=== PATIENT | male | born 1990 | race Caucasian/White ===

== ENCOUNTER 2018-07-08 07:51 | Emergency (ER) | payer OTHER ==
[~2018-07-08] VITALS: Ht 170.2 cm; Wt 72.6 kg
[~2018-07-08 07:51] MED LIST: CEPH500 PO; DOCU100 PO; HYDACE5 PO; SULTRIDS PO
[2018-07-08] MEDS ORDERED: SAPHRIS5 MG SL (09:03)
[2018-07-08] MEDS ORDERED: CLON2 PO (09:03)
[2018-07-08] MEDS ORDERED: IBUP600 PO (10:00)
== END 2018-07-08 10:08 | disposition home or self-care (01) ==
LOC: ER 07:51
DX: S01.411A Laceration without foreign body of right cheek and temporomandibular area, initial encounter (principal); Y04.8XXA Assault by other bodily force, initial encounter; F17.210 Nicotine dependence, cigarettes, uncomplicated
CPT/HCPCS: 12051; 90471; 90714; 96374; 99282-25; J1885

== ENCOUNTER 2019-02-21 17:58 | Observation (INO) | payer MEDICARE, OTHER ==
[~2019-02-21] VITALS: Ht 170.2 cm; Wt 77.1 kg
[~2019-02-21 17:58] MED LIST changes: +CLON1 PO; +IBUP600 PO; +SAPHRIS10 MG SL
[2019-02-21 18:58] LABS: BASOPHILS ABSOLUTE AUTO 0.03 K/mm3 (0.00-0.23); BASOPHILS PERCENT AUTO 0 % (0-2); EOSINOPHILS ABSOLUTE AUTO 0.06 K/mm3 (0.00-0.68); EOSINOPHILS PERCENT AUTO 1 % (0-6); Hematocrit 40.8 % (37.0-53.0); Hemoglobin 14.4 g/dL (13.5-17.5); IMMATURE GRAN ABSOLUTE AUTO 0.03 K/mm3 (0.00-0.10); IMMATURE GRAN PERCENT AUTO 0 % (0-1); LYMPHOCYTES ABSOLUTE AUTO 2.34 K/mm3 (0.84-5.20); LYMPHOCYTES PERCENT AUTO 27 % (21-46); MONOCYTES ABSOLUTE AUTO 0.82 K/mm3 (0.16-1.47); MONOCYTES PERCENT AUTO 9 % (4-13); Mean Corpuscular HGB 32.9 pg (26.0-34.0); Mean Corpuscular HGB Conc 35.3 g/dL (31.5-36.5); Mean Corpuscular Volume 93 fL (80-100); Mean Platelet Volume 10.6 fL (9.1-12.4); NEUTROPHILS ABSOLUTE AUTO 5.52 K/mm3 (1.96-9.15); NEUTROPHILS PERCENT AUTO 63 % (41-73); Platelet Count 164 K/mm3 (150-400); Red Blood Cell Count 4.38 M/mm3 (4.30-5.90)
[2019-02-21 19:19] LABS: Ethanol (Alcohol), Blood, Med <3 mg/dL; Salicylate 2.9 mg/dL (2.8-20.0)
[2019-02-21 19:29] LABS: Acetaminophen, Random <2.0 ug/mL (10.0-30.0); Alanine Aminotransfer (ALT/SGP 42 U/L (12-78); Albumin/Globulin Ratio 1.1 (0.8-1.8); Alk Phos 69 U/L (50-136); Anion Gap 8 mmol/L (6-16); Aspartate Aminotrans (AST/SGOT 40 U/L (12-37); Bilirubin, Total 0.3 mg/dL (0.1-1.0); Blood Urea Nitrogen 10 mg/dL (8-24); Bun/Creatinine Ratio 14.1 (12.0-20.0); CO2, Blood 26 mmol/L (21-32); Calcium, Blood 8.7 mg/dL (8.5-10.1); Chloride, Blood 104 mmol/L (98-108); Creatinine, Blood 0.71 mg/dL (0.60-1.20); Globulin, Blood 3.8 g/dL (2.2-4.0); Glomerular Filtration Rate >60 (60-); Glucose, Blood 119 mg/dL (70-99); Potassium, Blood 3.6 mmol/L (3.5-5.5); Sodium, Blood 138 mmol/L (136-145); Thyroid Stimulating Hormone 0.621 uIU/mL (0.360-4.800); Total Protein, Blood 7.8 g/dL (6.4-8.2)
[2019-02-21 19:31] LABS: Source, Urine Voided
[2019-02-21 19:34] LABS: Bilirubin, Urine Neg (Neg); Blood, Urine Neg (Neg); Glucose Qualitative, Urine Neg (Neg); Ketones, Urine 1+ (Neg); Leukocyte Esterase, Urine 1+ (Neg); Nitrite, Urine Neg (Neg); Protein, Urine 2+ (Neg); Urobilinogen, Urine 1+ (Normal)
[2019-02-21 19:42] LABS: Appearance, Urine Clear (Clear); Color, Urine Amber (P-Yellow); Red Blood Cells, Urine 0-2 /hpf (0-2); Squamous Epithelial Cells Rare /hpf (Few)
[2019-02-21 19:43] LABS: Bacteria Many /hpf; Mucus Mod ({null, 0-Heavy})
[2019-02-21 19:45] LABS: U Amphetamine Screen Not Detected; U Barbituate Screen Not Detected; U Benzodiazapine Screen Not Detected; U Buprenorphine Screen Not Detected; U Cannabinoids Screen DETECTED; U Cocaine Screen Not Detected; U Methadone Screen Not Detected; U Methamphetamine Screen Not Detected; U Opiates Screen Not Detected; U Oxycodone Screen Not Detected; U Phencyclidine Screen Not Detected; U Propoxyphene Screen Not Detected
[2019-02-21] MEDS ORDERED: Klonopin1 MG PO (20:11)
[2019-02-21] MEDS ORDERED: SAPHRIS5 MG SL (20:50)
== END 2019-02-22 07:32 | disposition home or self-care (01) ==
LOC: ER 17:58 → EOR 17:59
PROVIDERS: ADMIT Emergency Medicine
DX: F25.9 Schizoaffective disorder, unspecified (principal); F10.129 Alcohol abuse with intoxication, unspecified; F17.200 Nicotine dependence, unspecified, uncomplicated; Z79.899 Other long term (current) drug therapy
CPT/HCPCS: 71046; 80053; 81001; 84443; 85025; 87086; 99284-25; G0378; G0480

== ENCOUNTER 2019-02-24 12:35 | Emergency (ER) | payer MEDICARE, OTHER ==
[~2019-02-24] VITALS: Ht 170.2 cm; Wt 72.6 kg
[~2019-02-24 12:35] MED LIST changes: +Klonopin1 MG PO; +SAPHRIS5 MG SL
== END 2019-02-24 14:20 | disposition home or self-care (01) ==
LOC: ER 12:35
DX: F41.9 Anxiety disorder, unspecified (principal); F20.9 Schizophrenia, unspecified; F17.200 Nicotine dependence, unspecified, uncomplicated; Z79.899 Other long term (current) drug therapy
CPT/HCPCS: 99283

== ENCOUNTER 2019-11-11 05:12 | Observation (INO) | payer MEDICARE ==
[~2019-11-11] VITALS: Ht 172.7 cm; Wt 72.6 kg
[2019-11-12] MEDS ORDERED: HYDPAM25 PO (08:32)
[2019-11-12] MEDS ORDERED: QUET25 PO (13:43)
== END 2019-11-12 09:06 | disposition home or self-care (01) ==
LOC: ER 05:12 → EOR 05:13
PROVIDERS: ADMIT Emergency Medicine
DX: F20.9 Schizophrenia, unspecified (principal); F10.10 Alcohol abuse, uncomplicated; F12.10 Cannabis abuse, uncomplicated; F17.210 Nicotine dependence, cigarettes, uncomplicated; Z79.899 Other long term (current) drug therapy
CPT/HCPCS: 99285; G0378; Q0177

== ENCOUNTER 2020-02-22 08:10 | Emergency (ER) | payer MEDICARE ==
[~2020-02-22] VITALS: Ht 170.2 cm; Wt 77.1 kg
[~2020-02-22 08:10] MED LIST changes: +HYDPAM25 PO; +QUET25 PO
[2020-02-22] MEDS ORDERED: Zofran4 MG PO (08:35)
[2020-02-22] MEDS ORDERED: CLONAZEPAM1 MG PO (08:37)
== END 2020-02-22 08:39 | disposition home or self-care (01) ==
LOC: ER 08:10
DX: Z51.81 Encounter for therapeutic drug level monitoring (principal); R11.0 Nausea; F17.210 Nicotine dependence, cigarettes, uncomplicated; F20.9 Schizophrenia, unspecified; Z79.899 Other long term (current) drug therapy
CPT/HCPCS: 99283